=== PATIENT | female | born 1990 ===

== ENCOUNTER 2021-07-25 08:53 | Outpatient (CLI) | payer OTHER | END 2021-07-25 08:57 | disposition home or self-care (01) | LOC: SONOGRAMA 08:53 | PROVIDERS: ATTEND Pathology Anatomic Pathology & Clinical Pathology | DX: D34 Benign neoplasm of thyroid gland (principal); C73 Malignant neoplasm of thyroid gland ==

== ENCOUNTER 2021-09-22 08:39 | Outpatient (CLI) | payer OTHER | END 2021-09-22 09:15 | disposition home or self-care (01) | LOC: PRENATAL 08:39 | PROVIDERS: ATTEND Obstetrics & Gynecology Maternal & Fetal Medicine | DX: O36.80X0 Pregnancy with inconclusive fetal viability, not applicable or unspecified (principal); O99.891 Other specified diseases and conditions complicating pregnancy; Z36.89 Encounter for other specified antenatal screening ==

== ENCOUNTER 2021-11-24 08:16 | Outpatient (CLI) | payer OTHER | END 2021-11-24 09:00 | disposition home or self-care (01) | LOC: PRENATAL 08:16 | PROVIDERS: ATTEND Obstetrics & Gynecology Maternal & Fetal Medicine | DX: O35.0XX0 Maternal care for (suspected) central nervous system malformation in fetus, not applicable or unspecified (principal); O35.3XX0 Maternal care for (suspected) damage to fetus from viral disease in mother, not applicable or unspecified; O99.891 Other specified diseases and conditions complicating pregnancy; Z3A.20 20 weeks gestation of pregnancy ==

== ENCOUNTER 2022-02-05 21:13 | Outpatient (CLI) | payer OTHER ==
[~2022-02-05] VITALS: Ht 160 cm; Wt 74.8 kg
[~2022-02-05 21:13] MED LIST: ASA81 MG PO; PRENATAL TABLE1 EAC3 PO; SYNTHROID112 MCG PO; VITAMIN D250 MC1 PO
== END 2022-02-05 21:35 | disposition home or self-care (01) ==
LOC: NST 21:13
PROVIDERS: ATTEND Obstetrics & Gynecology
DX: Z34.83 Encounter for supervision of other normal pregnancy, third trimester (principal)

== ENCOUNTER 2022-02-24 13:35 | Outpatient (CLI) | payer OTHER | END 2022-02-24 15:00 | disposition home or self-care (01) | LOC: PRENATAL 13:35 | PROVIDERS: ATTEND Obstetrics & Gynecology Maternal & Fetal Medicine | DX: O26.849 Uterine size-date discrepancy, unspecified trimester (principal); O35.0XX0 Maternal care for (suspected) central nervous system malformation in fetus, not applicable or unspecified; O99.280 Endocrine, nutritional and metabolic diseases complicating pregnancy, unspecified trimester; Z3A.33 33 weeks gestation of pregnancy ==

== ENCOUNTER 2022-03-13 07:29 | Inpatient (IN) | payer OTHER ==
[~2022-03-13] VITALS: Ht 152.4 cm; Wt 77.1 kg
== END 2022-03-16 16:13 | disposition home or self-care (01) | DRG 805 ==
LOC: OB/GYN 07:29 → LDR 07:29 → OB/GYN 03-15 07:05
PROVIDERS: ADMIT Obstetrics & Gynecology; ATTEND Obstetrics & Gynecology
PROC: 3E0P7VZ Introduction of Hormone into Female Reproductive, Via Natural or Artificial Opening (ICD-10-PCS; 2022-03-13)
PROC: 3E033VJ Introduction of Other Hormone into Peripheral Vein, Percutaneous Approach (ICD-10-PCS; 2022-03-13)
PROC: 4A1HXCZ Monitoring of Products of Conception, Cardiac Rate, External Approach (ICD-10-PCS; 2022-03-13)
PROC: 10E0XZZ Delivery of Products of Conception, External Approach (ICD-10-PCS; principal; 2022-03-14)
PROC: 0UQG7ZZ Repair Vagina, Via Natural or Artificial Opening (ICD-10-PCS; 2022-03-14)
DX: O71.4 Obstetric high vaginal laceration alone (principal); O60.14X0 Preterm labor third trimester with preterm delivery third trimester, not applicable or unspecified; O41.03X0 Oligohydramnios, third trimester, not applicable or unspecified; Z3A.36 36 weeks gestation of pregnancy; Z37.0 Single live birth; Z20.822 Contact with and (suspected) exposure to COVID-19

== ENCOUNTER 2023-09-13 11:01 | Outpatient (CLI) | payer OTHER | END 2023-09-13 11:04 | disposition home or self-care (01) | LOC: SONOGRAMA 11:01 | PROVIDERS: ATTEND Pathology Anatomic Pathology & Clinical Pathology | DX: C73 Malignant neoplasm of thyroid gland (principal); R59.0 Localized enlarged lymph nodes ==

== ENCOUNTER → 2024-06-30 15:33 | Outpatient (CLI) | payer OTHER | END | disposition home or self-care (01) | LOC: PRENATAL 15:33 | PROVIDERS: ATTEND Obstetrics & Gynecology Maternal & Fetal Medicine | DX: O36.80X0 Pregnancy with inconclusive fetal viability, not applicable or unspecified (principal); O26.899 Other specified pregnancy related conditions, unspecified trimester; O26.859 Spotting complicating pregnancy, unspecified trimester; Z3A.01 Less than 8 weeks gestation of pregnancy ==

== ENCOUNTER 2024-10-23 13:06 | Outpatient (CLI) | payer OTHER | END 2024-10-23 13:07 | disposition home or self-care (01) | LOC: PRENATAL 13:06 | PROVIDERS: ATTEND Obstetrics & Gynecology Maternal & Fetal Medicine | DX: O36.80X0 Pregnancy with inconclusive fetal viability, not applicable or unspecified (principal); Z36.82 Encounter for antenatal screening for nuchal translucency; Z14.8 Genetic carrier of other disease; O99.280 Endocrine, nutritional and metabolic diseases complicating pregnancy, unspecified trimester; Z3A.11 11 weeks gestation of pregnancy ==

== ENCOUNTER → 2024-12-18 12:49 | Outpatient (CLI) | payer OTHER | END | disposition home or self-care (01) | LOC: PRENATAL 12:49 | PROVIDERS: ATTEND Obstetrics & Gynecology Maternal & Fetal Medicine | DX: O44.00 Complete placenta previa NOS or without hemorrhage, unspecified trimester (principal); O99.280 Endocrine, nutritional and metabolic diseases complicating pregnancy, unspecified trimester; Z3A.19 19 weeks gestation of pregnancy ==

== ENCOUNTER → 2025-02-11 13:37 | Outpatient (CLI) | payer OTHER | END | disposition home or self-care (01) | LOC: PRENATAL 13:37 | PROVIDERS: ATTEND Obstetrics & Gynecology Maternal & Fetal Medicine | DX: O26.849 Uterine size-date discrepancy, unspecified trimester (principal); O99.280 Endocrine, nutritional and metabolic diseases complicating pregnancy, unspecified trimester; O44.00 Complete placenta previa NOS or without hemorrhage, unspecified trimester; Z3A.28 28 weeks gestation of pregnancy ==

== ENCOUNTER 2025-03-06 09:29 | Outpatient (CLI) | payer OTHER ==
[2025-03-06 09:30] VITALS: BP 100/61
[2025-03-06 12:19] VITALS: BP 100/61
[2025-03-06] MEDS ORDERED: CHILDREN'S ASPI81 MG PO (12:43)
[2025-03-06] MEDS ORDERED: PRENATABS RX T1 EACH PO (12:43)
[2025-03-06] MEDS ORDERED: IRON236 MG PO (12:44)
== END 2025-03-06 12:47 | disposition home or self-care (01) ==
LOC: OBS/DEL 09:29
PROVIDERS: ATTEND Student in an Organized Health Care Education/Training Program
DX: O26.853 Spotting complicating pregnancy, third trimester (principal); O26.849 Uterine size-date discrepancy, unspecified trimester; O36.8199 Decreased fetal movements, unspecified trimester, other fetus; O60.00 Preterm labor without delivery, unspecified trimester; Z3A.31 31 weeks gestation of pregnancy

== ENCOUNTER 2025-04-09 12:45 | Outpatient (CLI) | payer OTHER ==
[~2025-04-09 12:45] MED LIST changes: +CHILDREN'S ASPI81 MG PO; +IRON236 MG PO; +PRENATABS RX T1 EACH PO
== END 2025-04-09 12:46 | disposition home or self-care (01) ==
LOC: PRENATAL 12:45
PROVIDERS: ATTEND Obstetrics & Gynecology Maternal & Fetal Medicine
DX: O26.849 Uterine size-date discrepancy, unspecified trimester (principal); O36.8199 Decreased fetal movements, unspecified trimester, other fetus; O99.280 Endocrine, nutritional and metabolic diseases complicating pregnancy, unspecified trimester; Z3A.36 36 weeks gestation of pregnancy

== ENCOUNTER 2025-04-23 13:45 | Inpatient (IN) | payer OTHER ==
[~2025-04-23] VITALS: Ht 160 cm; Wt 73.5 kg
[2025-04-29 15:25] VITALS: BP 114/73
[2025-04-29] MEDS ORDERED: MORPHINE SULFATE 4 MG/ML CARTRIDGE IV ONE (16:00)
[2025-04-29] MEDS ORDERED: RINGERS SOLUTION,LACTATED 1,000 ML IV SCH (16:00)
[2025-04-29] MEDS ORDERED: ONDANSETRON HCL 2 MG/ML VIAL IV ONE (16:30)
[2025-04-29] MEDS ORDERED: SYNTHROID137 MCG PO (16:38)
[2025-04-29 16:43] LABS: BASO % 0.3 % (0.1-1.2); EOS # 0.14 (0.04-0.54); EOS % 0.9 % (0.7-7.0); LYMPH # 1.84 (1.18-3.74); LYMPH % 11.7 % (19.3-53.1); MEAN PLATELET VOLUME 10.60 fl (9.4-12.4); MONO # 0.97 (0.24-0.82); MONO % 6.2 % (4.7-12.5); NEUT # 12.57 (1.56-6.13); NEUT % 80.3 % (34.0-71.1); RED CELL DISTRIBUTION WIDTH 13.0 % (11.6-14.4)
[2025-04-29 17:16] LABS: INR < 0.93
[2025-04-29] MEDS ORDERED: LIDOCAINE HCL 1% 10ML VIAL ONE (17:39)
[2025-04-29] MEDS ORDERED: OXYTOCIN 20 UNITS/1000ML RL PIGGYBAG IV ONE ×2 (17:39→19:50)
[2025-04-29] MEDS ORDERED: CHLORHEXIDINE GLUCONATE 120 ML BOTTLE TOP ONE (17:39)
[2025-04-29] MEDS ORDERED: ERYTHROMYCIN BASE OPHT 1GM EACH TUBE OP ONE (17:39)
[2025-04-29] MEDS ORDERED: DOCUSATE SODIUM 100MG CAP PO SCH (19:35)
[2025-04-29] MEDS ORDERED: OXYTOCIN 1,000 ML IV SCH (19:45)
[2025-04-29] MEDS ORDERED: CHLORHEXIDINE GLUCONATE 120 ML BOTTLE TOP SCH (19:45)
[2025-04-29] MEDS ORDERED: BENZOCAINE/MENTHOL 90 ML BOTTLE TOP SCH (21:00)
[2025-04-29 21:22] VITALS: BP 108/68
[2025-04-30 00:52] VITALS: BP 108/63
[2025-04-30 08:52] VITALS: BP 102/65; O2SAT 98
[2025-04-30 10:44] LABS: BASO % 0.4 % (0.1-1.2); EOS # 0.08 (0.04-0.54); EOS % 0.4 % (0.7-7.0); LYMPH # 2.35 (1.18-3.74); LYMPH % 11.1 % (19.3-53.1); MEAN PLATELET VOLUME 10.80 fl (9.4-12.4); MONO # 1.08 (0.24-0.82); MONO % 5.1 % (4.7-12.5); NEUT # 17.47 (1.56-6.13); NEUT % 82.4 % (34.0-71.1); RED CELL DISTRIBUTION WIDTH 13.2 % (11.6-14.4)
[2025-04-30 13:29] VITALS: BP 103/65; O2SAT 98
[2025-04-30 19:14] VITALS: BP 100/61
[2025-05-01 08:45] VITALS: BP 105/68; O2SAT 99
== END 2025-05-01 12:28 | disposition home or self-care (01) | DRG 807 ==
LOC: LDR 04-29 15:38 → OB/GYN 04-29 15:38 → LDR 04-29 16:38 → OB/GYN 04-29 20:10
PROVIDERS: ADMIT Student in an Organized Health Care Education/Training Program; ATTEND Student in an Organized Health Care Education/Training Program
PROC: 10E0XZZ Delivery of Products of Conception, External Approach (ICD-10-PCS; principal; 2025-04-29)
PROC: 0UQMXZZ Repair Vulva, External Approach (ICD-10-PCS; 2025-04-29)
PROC: 4A1HXCZ Monitoring of Products of Conception, Cardiac Rate, External Approach (ICD-10-PCS; 2025-04-29)
DX: O71.82 Other specified trauma to perineum and vulva (principal); Z37.0 Single live birth; O69.81X0 Labor and delivery complicated by cord around neck, without compression, not applicable or unspecified; Z3A.39 39 weeks gestation of pregnancy